=== PATIENT | female | born 1960 | race Caucasian/White ===

== ENCOUNTER → 2016-07-08 | Outpatient (CLI) | payer OTHER ==
[~2016-07-08] MED LIST: BENAZEPRIL; DARVOCET-N 1001 TAB; DIOVAN HCT 160/1 TAB PO; DIOVAN HCT 320/1 TA2 PO; LEVOTHYROXINE100 MCG; NAPROXEN; SYNTHROID
--- NOTE | ~2016-07-08 | US140 ---
[facility] A Service of [facility] & [facility] RADIOLOGY TEXT RESULTS PATIENT: JOSE F SALAS LOCATION: CNIV : 64 UNIT #: [id number] AGE: [address]: Melissa Porter MD SEX: F ORDER DR: [id number] [facility] [address] [place], [place] [address] [id number] MR#: [id number] Acc #: [id number] NAME: JOSE F SALAS : 1960 SEX: F STUDY DATE/TIME: 07/08/2016 15:51 UNIT: CNIV ROOM: STUDY DESCRIPTION: UE Veins Unilat or Ltd Stdy Attending Physician: Melissa Porter M.D. Referring Physician: Melissa Porter M.D. Ordering Physician: Melissa Porter M.D. Primary Care Physician: Melissa Porter M.D. MEDICAL IMAGING REPORT This report is preliminary unless electronic signature is present EXAM Right upper extremity venous duplex ultrasound 07/08/2016 HISTORY 56-year-old female with right arm pain for 1 week. Small palpable area in the antecubital fossa beginning after a blood draw 1 week ago. COMPARISON None. FINDINGS Real time bryant-scale, color Doppler, spectral Doppler analysis of the right upper extremity deep venous system demonstrates normal venous waveforms with normal compressibility and augmentation where applicable. No evidence of right upper extremity deep venous thrombosis. There is a small cystic structure in the palpable area of concern in the antecubital fossa measuring 6 x 4 x 5 mm in size. This is nonspecific, but could represent a small soft tissue hematoma. IMPRESSION 1. Negative for right upper extremity DVT. 2. Small cystic structure in the subcutaneous soft tissues in the palpable area of concern in the antecubital fossa measuring 6 x 4 x 5 mm. This is nonspecific, but may represent a small soft tissue hematoma. Dictated by... Delfino Stubbs M.D. THIS IS AN ELECTRONICALLY VERIFIED REPORT Delfino Stubbs M.D. at 07/11/2016 7:16 AM JOSE/rnr [facility]. [facility] A Service of [facility] & [facility] RADIOLOGY TEXT RESULTS PATIENT: JOSE F SALAS LOCATION: CNIV : 64 UNIT #: [id number] AGE: [address]: Melissa Porter MD SEX: F ORDER DR: TD: 07/09/2016 00:34 JOB #: [id number] MEDICAL IMAGING REPORT Page 1 of 1 COPY
== END | disposition home or self-care (01) ==
LOC: CNIV 15:29
DX: R22.31 Localized swelling, mass and lump, right upper limb (principal); M79.9 Soft tissue disorder, unspecified
CPT/HCPCS: 93971